=== PATIENT | female | born 1990 | race Caucasian/White ===

== ENCOUNTER 2021-05-22 15:13 | Outpatient (CLI) | payer MEDICAID, SELFPAY ==
--- NOTE | 2021-05-22 15:24 | CT_ITS ---
WS: [id number] CT NECK WITH CONTRAST HISTORY: CHRONIC PHARYNGITIS TECHNIQUE: Contiguous 5 mm axial images are performed through the neck with intravenous contrast. Sag ittal and coronal reformats are also submitted. All CT scans at [facility] use at least o ne of these dose optimization techniques: automated exposure control; mA and/or kV adjustment per pat ient size (includes targeted exams where dose is matched to clinical indication); or iterative recons truction. CONTRAST: CONTRAST: Omnipaque 300; 95 mL IV. DLP: 320.83 mGycm COMPARISON: None available. Nasopharynx, oropharynx, hypopharynx and larynx are unremarkable. No soft tissue masses or abnormal e nhancement. Torus tubarius and fossa of Rosenmuller and parapharyngeal fat are normal. RIGHT level IIa lymph node measures 11 mm in short axis diameter. Smaller bilateral level IIa lymph n odes are identified. No additional enlarged lymph nodes. Thyroid gland and salivary glands are normally enhancing with no masses. No osseous abnormalities. Visualized portions of the skull base demonstrate no abnormalities. Orbits and globes are within norm al limits. No soft tissue masses. Dense heterogeneous opacification of the RIGHT maxillary sinus. Mild mucoperiosteal thickening of the LEFT maxillary sinus. Lung apices are clear. LEFT vertebral artery arises from the arch. CT/CT neck w con* [id number] IMPRESSION: 1. Indeterminate 11 mm RIGHT level IIa lymph node. May be reactive or very ear ly neoplastic. 2. Heterogeneous opacification of the maxillary sinuses, RIGHT greater than LE FT. Differential includes inspissated secretions, blood or fungal sinusitis.
[2021-05-22] MEDS: iohexol 300 mg/mL 100 mL Btl IV (15:46)
== END 2021-05-22 15:14 | disposition home or self-care (01) ==
PROVIDERS: Visit Provider Specialist
DX: J31.2 Chronic pharyngitis (principal)
CPT/HCPCS: 70491; Q9967